=== PATIENT | female | born 1955 | race Caucasian/White ===

== ENCOUNTER 2017-12-11 10:47 | Observation (INO) ==
[2017-12-11 11:25] LABS: Bilirubin,Urine Small (Negative); Blood,Urine Negative (Negative); Clarity,Urine Cloudy (Clear); Color,Urine Dark Yellow (Yellow); Glucose,Urine (UA) Normal (Normal); Ketones,Urine 15 mg/dL (Negative); Leukocyte Esterase,Urine Negative (Negative); Nitrite,Urine Negative (Negative); PH,Urine 6.5 pH Units (5.0-8.0); Protein,Urine 30 mg/dL (Neg-Trace); Specific Gravity,Urine 1.029 (1.010-1.025)
[2017-12-11 11:27] LABS: Bacteria,Urine Few per hpf (None-Few); Squamous Epithelial Cell,Urine Many per lpf (None-Few); WBC,Urine 30-50 per hpf (0-3)
[2017-12-11 11:48] LABS: RBC,Urine 0-3 per hpf (0-3); Yeast,Urine Few per hpf (None Seen)
[2017-12-11] MEDS ORDERED: GI Cocktail 40 ML EACH PO ONE (12:03)
[2017-12-11] MEDS ORDERED: Promethazine 25 MG in 0.9 % Sodium Chloride 50 ML IVPB ONE (12:03)
[2017-12-11 12:16] LABS: Basophils % 0.4 %; Eosinophils # 0.1 K/mcL (0.0-0.6); Eosinophils % 0.4 %; Hematocrit 45.9 % (35.3-44.9); Hemoglobin 15.3 g/dL (11.5-15.4); Immature Granulocytes % 0.4 % (0-4); Immature Platelets 2.3 % (1.1-6.1); Lymphocytes # 1.8 K/mcL (0.6-4.6); Lymphocytes % 15.6 %; Mean Corpuscular HGB Conc 33.3 g/dL (31.6-35.5); Mean Corpuscular Hemoglobin 31.3 pg (28.0-33.3); Mean Corpuscular Volume 93.9 fL (83.0-100.0); Monocytes # 0.6 K/mcL (0.0-1.3); Monocytes % 5.7 %; Neutrophils # 8.7 K/mcL (1.6-8.9); Platelet Count 337 K/mcL (140-400); Red Blood Count 4.89 M/mcL (3.82-4.97); Red Cell Distribution Width 12.7 % (11.5-14.5); Segmented Neutrophils % 77.5 %
--- NOTE | 2017-12-11 12:30 | Emergency Department Note ---
Disposition Clinical Impression: Hypoxia Nausea & vomiting Qualifiers: Vomiting type: unspecified Vomiting Intractability: unspecified Qualified Code( s): R11.2 - Nausea with vomiting, unspecified COPD (chronic obstructive pulmonary disease) Qualifiers: COPD type: unspecified COPD Qualified Code(s): J44.9 - Chronic obstructive pulmonary disease, unspecified Disposition: Admitted As Inpatient Condition: Fair Chest Pain HPI - General Chief Complaint: ED Chest Pain Stated Complaint: Sharp pain under breast, into back Time Seen by Provider: 12/11/17 11:44 Source: patient Mode of arrival: ambulatory Limitations: no limitations Vital Signs Reviewed: Yes Nursing Notes Reviewed: Yes - History of Present Illness HPI Narrative: 62-year-old female presents to the emergency department for n/v x48 hours. After multiple episodes of vomiting the patient developed pain to the L lat inf chest. Chest hurts with movement and palpation, sharp, stabbing, lasting seconds at a time. No fever, chills, diarrhea, SOB, palpitations, headache. No history of CAD. abdomen is mildly tender to epigastrum. Patient states no diarrhea or hematochezia or melena. Severity scale (1-10): 6 - Related Data Home Medications Medication Instructions Recorded Confirmed LORazepam [Ativan] 0.5 mg PO DAILY PRN 12/11/17 12/11/17 PARoxetine HCl [Paroxetine HCl] 40 mg PO DAILY 12/11/17 12/11/17 hydroCHLOROthiazide 25 mg PO DAILY 12/11/17 12/11/17 [Hydrochlorothiazide] Allergies Allergy/AdvReac Type Severity Reaction Status Date / Time codeine Allergy Anaphylaxis Verified 12/11/17 11:11 [place] Allergy Anaphylaxis Verified 12/11/17 11:11 All systems ED: reviewed and negative except as stated. 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 nondistended. Bowel sounds present Neuro: A&O to person, place, time and situation. No focal deficits noted on exam Psychiatric: cooperative and appropriate mood and affect. - General Limitations: no limitations General appearance: alert Course Vital Signs Temperature 97.9 F 12/11/17 11:12 Pulse Rate 72 12/11/17 11:12 Respiratory Rate 24 12/11/17 11:12 Blood Pressure 159/84 12/11/17 11:12 O2 Sat by Pulse Oximetry 93 12/11/17 11:12 Temperature 98.7 F 12/12/17 10:59 Pulse Rate 63 12/12/17 10:59 Respiratory Rate 18 12/12/17 10:59 Blood Pressure 119/77 12/12/17 10:59 O2 Sat by Pulse Oximetry 95 12/12/17 10:59 Oxygen Delivery Oxygen Delivery Nasal Cannula Chest Pain - MDM Narrative Medical decision making narrative: Laboratory evaluation largely within normal limits. Urinalysis is questionable for urinary tract infection however there is no bacteria seen there is no nitrate present. We will send urine down for urine culture. CT of the abdomen and pelvis is negative for acute surgical pathology however there is mild swelling around the distal stomach. Patient tolerated a small amount of fluid in the emergency department after Zofran at home and Phenergan in the emergency Department however she is still nauseated. During observation in the emergency Department she became hypoxic down to 87% with a good waveform, daughter states this occurred once in the past with COPD exacerbation and pneumonia. Patient has mild wheezing in the bilateral posterior lung hilario however she does not appear to be in respiratory distress. Patient given Solu-Medrol and albuterol inhaler in the emergency department. She will be admitted to the hospitalist for further care and evaluation of her nausea and vomiting and hypoxia. Patient pain to the left lower chest is likely secondary to musculoskeletal etiology such as a rib strain as it is worse with palpation and movement. D- dimer negative. - Medical Records Medical records reviewed: Yes I reviewed the patient's medical records. - Lab Data Lab results reviewed: Yes I reviewed the patient's lab results. Result diagrams: 12/11/17 12:13 12/11/17 12:13 Lab Results 12/11/17 12/11/17 12/11/17 Range/Units 10:53 12:13 12:13 WBC 11.2 H (4.3-11.1) K/mcL RBC 4.89 (3.82-4.97) M/mcL Hgb 15.3 (11.5-15.4) g/dL Hct 45.9 H (35.3-44.9) % MCV 93.9 (83.0-100.0) fL MCH 31.3 (28.0-33.3) pg MCHC 33.3 (31.6-35.5) g/dL RDW 12.7 (11.5-14.5) % Plt Count 337 (140-400) K/mcL MPV 10.0 (9.4-12.4) fL Immature Gran % 0.4 (0-4) % Seg Neutrophils % 77.5 % Lymphocytes % 15.6 % Monocytes % 5.7 % Eosinophils % 0.4 % Basophils % 0.4 % Neutrophils # 8.7 (1.6-8.9) K/mcL Lymphocytes # 1.8 (0.6-4.6) K/mcL Monocytes # 0.6 (0.0-1.3) K/mcL Eosinophils # 0.1 (0.0-0.6) K/mcL Basophils # 0.0 (0.0-0.2) K/mcL Immature Plt Fraction 2.3 (1.1-6.1) % D-Dimer (0-500) ng/mLFEU Sodium 139 (136-145) mEq/L Potassium 3.6 (3.5-5.1) mEq/L Chloride 102 (98-107) mEq/L Carbon Dioxide 30 H (23-29) mEq/L BUN 13 (8-23) mg/dL Creatinine 0.55 L (0.60-1.20) mg/dL Est GFR ( Amer) > 60 (> 60) Est GFR (Non-Af Amer) > 60 (> 60) BUN/Creatinine Ratio 24 (6-26) Glucose 121 H (70-105) mg/dL Calculated Osmolality 289 (280-300) Calcium 9.4 (8.6-10.3) mg/dL Total Bilirubin 0.6 (0.3-1.0) mg/dL Direct Bilirubin 0.2 (0.0-0.2) mg/dL Indirect Bilirubin 0.4 (0.0-1.2) mg/dL AST 14 (13-39) Units/L ALT 16 (7-52) Units/L Alkaline Phosphatase 92 (34-104) Units/L Troponin I < 0.03 (< 0.04) ng/mL Serum Total Protein 7.0 (6.4-8.9) g/dL Albumin 4.5 (3.5-5.7) g/dL Globulin 2.5 (2.4-3.5) g/dL Albumin/Globulin Ratio 1.8 (1.1-2.2) Lipase 13 (11-82) Units/L Urine Color Dark Yellow (Yellow) Urine Clarity Cloudy A (Clear) Urine pH 6.5 (5.0-8.0) pH Units Ur Specific [place] 1.029 H (1.010-1.025) Urine Protein 30 H (Neg-Trace) mg/dL Urine Glucose (UA) Normal (Normal) mg/dL Urine Ketones 15 H (Negative) mg/dL Urine Blood Negative (Negative) Urine Nitrite Negative (Negative) Urine Bilirubin Small H (Negative) Urine Urobilinogen 2.0 H (Normal) mg/dL Ur Leukocyte Esterase Negative (Negative) Urine Microscopic RBC 0-3 (0-3) per hpf Urine Microscopic WBC 30-50 H (0-3) per hpf Ur Squamous Epith Cells Many H (None-Few) per lpf Urine Bacteria Few (None-Few) per hpf Urine Yeast Few H (None Seen) per hpf Ur Culture Indicated? NO (NO) 12/11/17 Range/Units 15:55 WBC (4.3-11.1) K/mcL RBC (3.82-4.97) M/mcL Hgb (11.5-15.4) g/dL Hct (35.3-44.9) % MCV (83.0-100.0) fL MCH (28.0-33.3) pg MCHC (31.6-35.5) g/dL RDW (11.5-14.5) % Plt Count (140-400) K/mcL MPV (9.4-12.4) fL Immature Gran % (0-4) % Seg Neutrophils % % Lymphocytes % % Monocytes % % Eosinophils % % Basophils % % Neutrophils # (1.6-8.9) K/mcL Lymphocytes # (0.6-4.6) K/mcL Monocytes # (0.0-1.3) K/mcL Eosinophils # (0.0-0.6) K/mcL Basophils # (0.0-0.2) K/mcL Immature Plt Fraction (1.1-6.1) % D-Dimer 402 (0-500) ng/mLFEU Sodium (136-145) mEq/L Potassium (3.5-5.1) mEq/L Chloride (98-107) mEq/L Carbon Dioxide (23-29) mEq/L BUN (8-23) mg/dL Creatinine (0.60-1.20) mg/dL Est GFR ( Amer) (> 60) Est GFR (Non-Af Amer) (> 60) BUN/Creatinine Ratio (6-26) Glucose (70-105) mg/dL Calculated Osmolality (280-300) Calcium (8.6-10.3) mg/dL Total Bilirubin (0.3-1.0) mg/dL Direct Bilirubin (0.0-0.2) mg/dL Indirect Bilirubin (0.0-1.2) mg/dL AST (13-39) Units/L ALT (7-52) Units/L Alkaline Phosphatase (34-104) Units/L Troponin I (< 0.04) ng/mL Serum Total Protein (6.4-8.9) g/dL Albumin (3.5-5.7) g/dL Globulin (2.4-3.5) g/dL Albumin/Globulin Ratio (1.1-2.2) Lipase (11-82) Units/L Urine Color (Yellow) Urine Clarity (Clear) Urine pH (5.0-8.0) pH Units Ur Specific [place] (1.010-1.025) Urine Protein (Neg-Trace) mg/dL Urine Glucose (UA) (Normal) mg/dL Urine Ketones (Negative) mg/dL Urine Blood (Negative) Urine Nitrite (Negative) Urine Bilirubin (Negative) Urine Urobilinogen (Normal) mg/dL Ur Leukocyte Esterase (Negative) Urine Microscopic RBC (0-3) per hpf Urine Microscopic WBC (0-3) per hpf Ur Squamous Epith Cells (None-Few) per lpf Urine Bacteria (None-Few) per hpf Urine Yeast (None Seen) per hpf Ur Culture Indicated? (NO) - Radiology Data Radiology results reviewed: Yes I reviewed the patient's radiology results. - EKG Data EKG attestation: Yes I reviewed and interpreted this EKG. EKG results narrative: Normal sinus rhythm with a rate of 74 without evidence of STEMI. KS 145, QRS 86 , QTC 395. Heart Score - Score History: Slightly Suspicious EKG: Normal Age: 45-65 Risk Factors: 1-2 risk factors Troponin: Less than normal limit HEART Score Total: 2
[2017-12-11 12:40] LABS: Troponin I < 0.03 ng/mL (< 0.04)
[2017-12-11 12:41] LABS: Alanine Aminotransferase 16 Units/L (7-52); Albumin 4.5 g/dL (3.5-5.7); Albumin/Globulin Ratio 1.8 (1.1-2.2); Alkaline Phosphatase 92 Units/L (34-104); Aspartate Amino Transferase 14 Units/L (13-39); BUN/Creatinine Ratio 24 (6-26); Bilirubin,Direct 0.2 mg/dL (0.0-0.2); Bilirubin,Indirect 0.4 mg/dL (0.0-1.2); Bilirubin,Total 0.6 mg/dL (0.3-1.0); Blood Urea Nitrogen 13 mg/dL (8-23); Calcium 9.4 mg/dL (8.6-10.3); Carbon Dioxide 30 mEq/L (23-29); Chloride 102 mEq/L (98-107); Globulin 2.5 g/dL (2.4-3.5); Glucose 121 mg/dL (70-105); Lipase 13 Units/L (11-82); Osmolality,Calculated 289 (280-300); Potassium 3.6 mEq/L (3.5-5.1); Sodium 139 mEq/L (136-145); eGFR For African Americans > 60 (> 60); eGFR For Non-African Americans > 60 (> 60)
[2017-12-11] MEDS ORDERED: *HR* OxyCODONE/APAP 5/325 TABLET PO ONE ×2 (12:44→13:30)
[2017-12-11] MEDS ORDERED: Isovue-370 500 ML INFUS..BTL IV ONE (13:53)
[2017-12-11] MEDS ORDERED: Albuterol 2.5 MG/3 ML NEBULIZER IH ONE (15:12)
[2017-12-11] MEDS ORDERED: methylPREDNISolone 125 MG/2 ML VIAL IVP ONE (15:12)
--- NOTE | 2017-12-11 19:08 | Internal Med History&Physical ---
Date of Encounter: 12/11/17 Time of Encounter: 19:08 Internal Medicine - H&P: HPI Admitted From: Home Plans for Post Hospital Care: Home History of present illness: Ms. Perry is a 62 year old female patient with history of depression, hypertension, COPD, chronic a smoker for 35 years and quit in 2017, hyperlipidemia, strong family history of cardiac disease in her dad at age 60s, grandparents 70s and mother 90s with no home oxygen brought to emergency room by family with concern of ongoing nausea vomiting that started Sunday morning that led to left upper quadrant and epigastric abdominal pain and left lower chest pain or shortness of breath. In ER patient was found to be hypoxic 87% on 2 L oxygen via nasal cannula started. Initial lab in ER with no acute finding. D-dimer negative. Chest x-ray bilateral atelectasis. CT abdomen with finding of gastritis otherwise no acute. In ER GI cocktail, lidocaine patch, Phenergan, breathing treatments and Solu-Medrol was restarted for symptomatic relief considering COPD exacerbation as well. Your physician called on-call hospitalist for the admission and workup diagnosis of persistent nausea vomiting, hypoxia, COPD exacerbation. During my interview family at bedside and patient feeling better is still 2 L oxygen by nasal cannula and persistent nausea that want to drink fluid. Patient was not able to keep down anything therefore got dehydrated and decreased urine output. Patient never had any cardiac evaluation. Patient denies any recent travel, trauma, fall. Patient denies fever, chills, headache, dizziness, diarrhea, constipation, change in urine frequency, urgency, small bowel but decreased urine output. Past Med Surg Social Fam HX - Past Medical History Medical history: arthritis, asthma, cancer, COPD, DVT, dementia, hyperlipidemia , hypertension, malignancy, osteoporosis Psychiatric history: anxiety, depression - Past Surgical History Surgical History: cancer surgery, hysterectomy, orthopedic, other, other - Social History Smoking Status: Former smoker Smokeless Tobacco Status: No Alcohol use: none Drug use: none Internal Medicine - H&P: Meds LORazepam [Ativan] 0.5 mg PO DAILY PRN 12/11/17 [History] PARoxetine HCl [Paroxetine HCl] 40 mg PO DAILY 12/11/17 [History] hydroCHLOROthiazide [Hydrochlorothiazide] 25 mg PO DAILY 12/11/17 [History] 3 Allergy/AdvReac Type Severity Reaction Status Date / Time codeine Allergy Anaphylaxis Verified 12/11/17 11:11 [place] Allergy Anaphylaxis Verified 12/11/17 11:11 All Systems PM: A 10-system review of systems was performed and is negative for pertinent findings except as documented above in the HPI. - Constitutional Vitals: Temp Pulse Resp BP Pulse Ox 97.4 F L 63 17 120/61 94 12/11/17 18:16 12/11/17 18:16 12/11/17 18:16 12/11/17 18:16 12/11/17 18:16 Exam: General appearance: No acute distress, A&O X 3. Obese. 2 L oxygen by nasal cannula. Family at bedside Head exam: Atraumatic Eye exam: EOMI, PERRLA ENT exam: Dry oral mucosa Neck nontender, supple Respiratory exam: Decreased breath sounds bilaterally Cardiovascular exam: Regular rate and rhythm, no systolic murmur Abdominal exam: Soft, mildly tender epigastric area. nondistended, positive bowel sounds Extremities exam: No calf tenderness, no pedal edema Present: Skin-no rash, warm, dry, intact Neurological exam: Alert, awake, oriented 3, CN II-XII intact, no focal deficits. No facial droop. Normal speech. Normal gait. Romberg sign negative Internal Med - H&P Results - Labs CBC & Chem 7: 12/11/17 12:13 12/11/17 12:13 - Assessment and plan (1) Gastritis Current Visit: Yes Status: Acute Assessment and plan: New onset. Associated with nausea vomiting and dry heaves. CT abdomen with suggestive finding. Never had endoscopy done. Symptomatic treatment with antiemetic, IV fluid, PPI. No active bleeding. Patient may need to get evaluated by gastroenterologists on OPD basis and get better symptomatically. Patient also have mild to moderate dehydration due to persistent nausea vomiting. Qualifiers: Gastritis type: unspecified gastritis Chronicity: acute Gastritis bleeding: without bleeding Qualified Code(s): K29.00 - Acute gastritis without bleeding (2) Hypoxia Current Visit: Yes Status: Acute Assessment and plan: Multiple differential. Patient may have chronic hypoxia but never got diagnosed. D-dimer negative therefore less likely pulmonary embolism. Could be possibility of COPD exacerbation for will order ABG. Patient also has a basilar atelectasis that could be chronic. The underlying cardiac etiology therefore cardiac workup is planned. Oxygen supplementation, DuoNeb, spirometry. Patient may need home oxygen evaluation before discharge (3) COPD exacerbation Current Visit: Yes Status: Acute Assessment and plan: History of COPD. Decreased breath sound on my evaluation but mild wheezy in ER. ABG ordered. Continue IV steroid, DuoNeb, oxygen when necessary, spirometry. No antibiotics at this time. (4) Chest pain Current Visit: Yes Status: Acute Assessment and plan: Atypical left lower chest pain that could be due to repeated nausea vomiting but patient also had multiple cardiac risk factors such as chronic smoker, hyperlipidemia, hypertension and a strong family history of cardiac disease in her parents and grandparents and never had cardiac evaluation. Will put patient on telemetry, serial cardiac enzyme. We will also start low-dose aspirin, oxygen when necessary. Will hold beta emily due to concern of COPD exacerbation. Fasting lipid profile will be ordered and consider low-dose statin. Echocardiogram and also consult him tech if needed. Patient may need a stress test as well Qualifiers: Chest pain type: unspecified Qualified Code(s): R07.9 - Chest pain, unspecified (5) Abdominal pain Current Visit: Yes Status: Acute Assessment and plan: Most likely due to gastritis associated with persistent nausea vomiting. Will order lipase and amylase. CT abdomen with no acute finding except gastritis. IV fluid, clear liquid with close monitoring. Patient also has slight abnormal urine analysis but does not have urine symptom except decreased urine output that is most likely due to dehydration secondary to decreased by mouth intake and therefore I will monitor the patient if any concern of urine infection and then will order urine culture sensitivity and antibiotic. Qualifiers: Abdominal location: epigastric Qualified Code(s): R10.13 - Epigastric pain (6) Leukocytosis Current Visit: Yes Status: Acute Assessment and plan: Mild. Patient denies any systemic signs and symptoms. Most likely a stress related. Continue to monitor. Urine analysis abnormal but not convince UTI therefore will monitor the patient before considering urine culture sensitivity and antibiotic. Chest x-ray with no acute finding. Monitor CBC Qualifiers: Leukocytosis type: unspecified Qualified Code(s): D72.829 - Elevated white blood cell count, unspecified (7) DVT prophylaxis Current Visit: Yes Status: Acute Assessment and plan: SCDs - Time Spent With Patient Total time spent is greater than 50% in coordination of care (as documented) at patient's floor/unit and/or counseling patient: Greater than 35 minutes (Multiple medical complaint evaluation. Counseling of family members. Discussed the plan with nurse.)
[2017-12-11] MEDS: *HR* Promethazine 25 MG/ML VIAL IVP PRN (21:40)
[2017-12-11] MEDS: 0.9 % Sodium Chloride 1,000 ML IVC SCH (23:40)
[2017-12-12] MEDS ORDERED: GI Cocktail 40 ML EACH PO ONE (04:22)
[2017-12-12] MEDS: *HR* Promethazine 25 MG/ML VIAL IVP PRN ×2 (04:24→15:11)
[2017-12-12] MEDS ORDERED: *HR* LORazepam 0.5 MG TABLET PO PRN (11:52)
[2017-12-12] MEDS ORDERED: Ipratropium/Albuterol Neb 3 ML IH PRN (11:52)
[2017-12-12] MEDS ORDERED: Ondansetron 4 MG/2 ML VIAL IVP PRN (12:08)
[2017-12-12] MEDS ORDERED: *HR* OxyCODONE/APAP 5/325 TABLET PO PRN (12:08)
[2017-12-12] MEDS: 0.9 % Sodium Chloride 1,000 ML IVC SCH (13:29)
--- NOTE | 2017-12-12 14:07 | Internal Med Progress Note ---
Date of Encounter: 12/12/17 Time of Encounter: 12:30 - Assessment and plan (1) Abdominal pain Current Visit: Yes Status: Acute Assessment and plan: Most likely due to gastritis associated with persistent nausea vomiting CT of abd showed gastritis GI consulted for EGD in AM Qualifiers: Abdominal location: epigastric Qualified Code(s): R10.13 - Epigastric pain (2) Gastritis Current Visit: Yes Status: Acute Assessment and plan: Recurrent gastritis cont full liquid diet for now cont PPI also consulted GI for further work up since she does have recurrent gastritis cont IVF Qualifiers: Gastritis type: unspecified gastritis Chronicity: acute Gastritis bleeding: without bleeding Qualified Code(s): K29.00 - Acute gastritis without bleeding (3) COPD exacerbation Current Visit: Yes Status: Acute Assessment and plan: She does have mild COPD exacerbation with hypoxia started on Steroid Neb cont Duoneb PRN try to wean her off the O2 (4) Hypoxia Current Visit: Yes Status: Acute Assessment and plan: Due to mild COPD exacerbation will try to wean her off the O2 as she tolerates may need over night pulse oxy study (5) Chest pain Current Visit: Yes Status: Acute Assessment and plan: Atypical left lower chest pain mostly musculoskeletal So far negative trop Normal EKG very less likely cardiac related pain Qualifiers: Chest pain type: unspecified Qualified Code(s): R07.9 - Chest pain, unspecified (6) DVT prophylaxis Current Visit: Yes Status: Acute Assessment and plan: SCDs - Time Spent With Patient Total time spent is greater than 50% in coordination of care (as documented) at patient's floor/unit and/or counseling patient: - Subjective Interval history: Ms. Perry is a 62 year old female with known PMH of HTN, Depression, COPD former smoker quit in 06/2017, HLD pt presented to ER with epigastric pain and intractable nausea / vomiting. He did c/o left lower chest wall pain radiating to her back. Pt stated she does have recurrent epigastric pain, dysphagia, nausea and vomiting almost every 2-3 weeks. Pt states she is feeling little better now. Denied any CP. Still has abdominal discomfort. - Constitutional Vitals: Temp Pulse Resp BP Pulse Ox 98.7 F 63 18 119/77 95 12/12/17 10:59 12/12/17 10:59 12/12/17 10:59 12/12/17 10:59 12/12/17 10:59 General appearance: Present: A&O X 3, no acute distress, answers questions appropriately - Head Head exam: Present: atraumatic, normal inspection - Neck Neck exam general surgery: Present: supple - Respiratory Respiratory exam: Present: decreased breath sounds. Absent: chest wall tenderness, rales, respiratory distress, rhonchi, wheezes - Cardiovascular Cardiovascular exam: Present: RRR, +S1, +S2. Absent: tachycardia - GI/Abdominal GI/Abdominal exam: Present: normal bowel sounds, soft, tenderness (mild discomfort in epigastric region). Absent: distended, rebound, rigid - Extremities Exam Extremities exam: Absent: calf tenderness, pedal edema, tenderness - Back Exam Back exam: Absent: CVA tenderness (L), CVA tenderness (R) - Neurological Exam Neurological exam: Present: alert, oriented X3 - Psychiatric Psychiatric exam: Present: normal affect, normal mood - Skin Skin exam: Absent: rash Internal Medicine: Result - Labs CBC & Chem 7: 12/11/17 12:13 12/11/17 12:13 - ABG Interpretation ABG results: PT/INR, D-dimer D-Dimer 402 ng/mLFEU (0-500) 12/11/17 15:55 Consult Discharge Plan - Plan Referrals: Rosa Molina CNP [Primary Care Provider] -
[2017-12-12] MEDS: Budesonide Neb 0.5 MG/2 ML IH SCH ×2 (17:29→22:05)
[2017-12-13] MEDS: 0.9 % Sodium Chloride 1,000 ML IVC SCH ×2 (02:19→21:36)
[2017-12-13] MEDS ORDERED: hydroCHLOROthiazide 25 MG TABLET PO SCH (09:00)
[2017-12-13 09:12] LABS: INR 1.1; Prothrombin Time 12.3 Seconds (9.4-12.1)
--- NOTE | 2017-12-13 10:08 | Gastroenterology Consult Note ---
<Analy Leon M - Last Filed: 12/17/17 13:29> Date of Encounter: 12/17/17 Time of Encounter: 09:20 - Assessment and plan (1) Abdominal pain Status: Acute Assessment and plan: Likely gastritis, she needs EGD. Continue PPI. Will proceed with EGD today. Qualifiers: Abdominal location: epigastric Qualified Code(s): R10.13 - Epigastric pain (2) Nausea & vomiting Status: Acute Qualifiers: Vomiting type: cyclical vomiting Vomiting Intractability: unspecified Qualified Code(s): G43.A0 - Cyclical vomiting, not intractable - Time Spent With Patient Total time spent is greater than 50% in coordination of care (as documented) at patient's floor/unit and/or counseling patient: GI History of Present Illness - Data of Consult Patient: new to practice Consult date: 12/13/17 Requesting Physician: Ella Albrecht MD - Consult Narrative Reason for consult: epigastric pain/nausea/vomiting History of present illness: Ms. Perry is a 62 year old female with history of depression, hypertension, COPD , chronic a smoker for 35 years and quit in 2017, hyperlipidemia, strong family history of cardiac disease. She presented with ongoing nausea vomiting that started Sunday morning that led to left upper quadrant and epigastric abdominal pain and left lower chest pain or shortness of breath. She states has been on and off for the past year but much worse since Sunday. She complains of acid reflux that wakes her up at night. She states nausea and vomiting is worse after eating. She has occasional diarrhea. She denies bloody or tarry stools. She rarely uses NSAIDs. She denies fever or chills. EGD: denies Colon: 3 years ago at [facility] NSAIDS: occ anticoagulants: none Past Med Surg Social Fam HX - Past Medical History Medical history: arthritis, asthma, cancer, COPD, DVT, dementia, hyperlipidemia , hypertension, malignancy, osteoporosis Psychiatric history: anxiety, depression - Past Surgical History Surgical History: cancer surgery, hysterectomy, orthopedic, other, other - Social History Smoking Status: Former smoker Smokeless Tobacco Status: No Alcohol use: none Drug use: none Review of Systems: GI: as per [facility]: denies fever, has some chills EYES: denies yellow discoloration ENT: denies pain with swallowing, has some difficulty swallowing CARDIO: see HPI RESP: Shortness of breath with exertion : denies change in color of urine NEURO: denies any weakness HEME: Denies any bruising MS: denies joint pain, joint swelling or back pain. DERM: denies rash or itching PSYCH: Denies history of anxiety or depression - Constitutional Vitals: Temp Pulse Resp BP Pulse Ox 98.2 F 82 16 130/73 96 12/13/17 07:32 12/13/17 07:32 12/13/17 07:32 12/13/17 07:32 12/13/17 08:05 Exam: CONSTITUTIONAL:~alert, no acute distress.~HEAD:~normocephalic.~EYES:~no jaundice.~NECK:~no obvious swelling.~HEART:~regular rate and rhythm, no murmurs. ~LUNGS:~bilateral fair air entry.~ABDOMEN:~non distended, soft, very tender, no masses palpable, no organomegaly, small linear scar below umbilicus.~RECTAL EXAM :~Deferred.~EXTREMITIES:~no clubbing, cyanosis or edema, obese.~SKIN:~no stigmata of chronic liver disease.~NEUROLOGIC:~no obvious focal defect.~~~~ Results - Labs CBC & Chem 7: 12/11/17 12:13 12/11/17 12:13 Labs: Last Result Calcium 9.4 mg/dL (8.6-10.3) 12/11/17 12:13 Troponin I < 0.03 ng/mL (< 0.04) 12/11/17 12:13 Entire Visit Hgb 15.3 g/dL (11.5-15.4) 12/11/17 12:13 Hct 45.9 % (35.3-44.9) H 12/11/17 12:13 PT 12.3 Seconds (9.4-12.1) H 12/13/17 08:43 Total Bilirubin 0.6 mg/dL (0.3-1.0) 12/11/17 12:13 AST 14 Units/L (13-39) 12/11/17 12:13 ALT 16 Units/L (7-52) 12/11/17 12:13 Lipase 13 Units/L (11-82) 12/11/17 12:13 - ABG ABG results: PT/INR, D-dimer PT 12.3 Seconds (9.4-12.1) H 12/13/17 08:43 D-Dimer 402 ng/mLFEU (0-500) 12/11/17 15:55 Consult Discharge Plan - Plan Instructions: Diet for Ulcers and Gastritis (GEN) Referrals: Rosa Molina CNP [Primary Care Provider] - 12/21/17 1:00 pm Venkata Perkins MD [Partnered Physician] - (WEB REQUEST ENTERED. OFFICE WILL WITH APPOINTMENT.) Prescriptions: Albuterol Sulfate [Albuterol Inhaler] 2 puff IH Q6HR PRN #1 hfa.aer.ad PRN Reason: Shortness Of Breath OxyCODONE/APAP 5/325 [Percocet 5/325 MG] 1 each PO Q6HR PRN 4 Days #10 tablet PRN Reason: Moderate Pain Budesonide [Pulmicort Flexhaler 90mcg] 2 puff IH BID #1 aer.pow.ba Omeprazole [PriLOSEC] 20 mg PO BID #60 capsule. Sucralfate [Carafate] 1 gm PO QIDAC #120 tablet <Venkata Perkins - Last Filed: 12/19/17 05:58> Date of Encounter: 12/17/17 - Time Spent With Patient Total time spent is greater than 50% in coordination of care (as documented) at patient's floor/unit and/or counseling patient: GI History of Present Illness - Data of Consult Requesting Physician: Ella Albrecht MD - Consult Narrative History of present illness: Ms. Perry is a 62 year old female - Constitutional Vitals: Temp Pulse Resp BP Pulse Ox 97.3 F L 58 16 163/83 94 12/14/17 10:23 12/14/17 10:23 12/14/17 10:23 12/14/17 10:23 12/14/17 15:01 Results - Labs CBC & Chem 7: 12/11/17 12:13 12/11/17 12:13 Labs: Last Result Calcium 9.4 mg/dL (8.6-10.3) 12/11/17 12:13 Troponin I < 0.03 ng/mL (< 0.04) 12/11/17 12:13 Entire Visit Hgb 15.3 g/dL (11.5-15.4) 12/11/17 12:13 Hct 45.9 % (35.3-44.9) H 12/11/17 12:13 PT 12.3 Seconds (9.4-12.1) H 12/13/17 08:43 Total Bilirubin 0.6 mg/dL (0.3-1.0) 12/11/17 12:13 AST 14 Units/L (13-39) 12/11/17 12:13 ALT 16 Units/L (7-52) 12/11/17 12:13 Lipase 13 Units/L (11-82) 12/11/17 12:13 - ABG ABG results: PT/INR, D-dimer PT 12.3 Seconds (9.4-12.1) H 12/13/17 08:43 D-Dimer 402 ng/mLFEU (0-500) 12/11/17 15:55 - Attending Attestation PLan EGD today. Patient with history of bladder, colon cancer in past. Need family tree filled out by patient. I have personally performed a face to face evaluation on this patient. I have reviewed and agree with the care plan. History and Exam by me shows:
[2017-12-13] MEDS: Budesonide Neb 0.5 MG/2 ML IH SCH ×2 (10:53→21:53)
--- NOTE | 2017-12-13 12:41 | Anesthesia Evaluation PreOp ---
Date of Encounter: 12/13/17 Time of Encounter: 12:40 - Past History Planned Operation: EGD Cardiac History: HTN, Hyperlipidemia Pulmonary History: Former smoker, COPD PICTURE FRAMES INSPECTOR History: Denies Any Significant HX Other Medical History: Other (Obese) Anesthesia History: No Prior Anesthetic Complications : No Alcohol Use: none Drug use: none Medications and Allergies LORazepam [Ativan] 0.5 mg PO DAILY PRN 12/11/17 [History] PARoxetine HCl [Paroxetine HCl] 40 mg PO DAILY 12/11/17 [History] hydroCHLOROthiazide [Hydrochlorothiazide] 25 mg PO DAILY 12/11/17 [History] 3 Allergy/AdvReac Type Severity Reaction Status Date / Time codeine Allergy Anaphylaxis Verified 12/11/17 11:11 [place] Allergy Anaphylaxis Verified 12/11/17 11:11 - Meds/Allergy Pre-op Review Medications Reviewed: Yes Allergies Reviewed: Yes Beta Blockers on Current Med List: No Anesthesia Results - Labs 12/11/17 12:13 12/11/17 12:13 - Imaging EKG: report reviewed (SB) Anesthesia Exam Vital Signs/O2 Sat/Glucose, Most Current Temp Pulse Resp BP Pulse Ox 12/13/17 12:36 98.8 F 64 18 147/69 93 12/13/17 11:00 97.8 F 54 16 128/74 98 12/13/17 10:54 16 96 Height: 5'7 Weight: 243 lbs NPO (# of Hours): MN Pain Scale: 0 - HEENT Pupil (Motor): Pupils equal, EOMI Mallampati: III Teeth: Edentulous (no upper dentition) Oral Opening: Less than or equal to 3 - PICTURE FRAMES INSPECTOR LOC: Oriented PICTURE FRAMES INSPECTOR Motor: Normal RUE, Normal LUE, Normal RLE, Normal LLE, Normal Face PICTURE FRAMES INSPECTOR Sensory: Normal: RUE, LUE, RLE, LLE, Face - Cardiac Rhythm: Regular Murmur: None JVD: No Carotid Bruit: No - Pulmonary Breath Sounds: bilateral Clear Respiratory Effort: Symmetrical Anesthesia Assess/Plan ASA Score: 3 (HTN COPD Obese) Modified [place] Scale for Level of Consciousness: Cooperative, oriented, and tranquil Anesthetic Plan: MAC Monitoring Plan: Standard Monitors Recovery Plan: Other (Discussed MAC, agrees to proceed)
[2017-12-13] MEDS ORDERED: *HR* Propofol 200 MG/20 ML VIAL IVP ONE (12:53)
[2017-12-13] MEDS ORDERED: Lidocaine -MPF 2% 2 ML VIAL ONE (12:54)
[2017-12-13] MEDS ORDERED: Tetracaine/Benzocaine/Butamben 200MG/SPRAY (100SPY/BOT) MM ONE (12:59)
[2017-12-13] MEDS ORDERED: 0.9 % Sodium Chloride 500 ML IVC SCH (13:00)
--- NOTE | 2017-12-13 14:46 | Internal Med Progress Note ---
Date of Encounter: 12/13/17 Time of Encounter: 14:42 - Assessment and plan (1) Abdominal pain Current Visit: Yes Status: Acute Assessment and plan: Most likely due to gastritis and non bleeding esophageal and gastric ulcers CT of abd showed gastritis s/p EGD - showed hiatal hernia, gastric and esophageal ulcer path report - P cont PPI + Carafate Qualifiers: Abdominal location: epigastric Qualified Code(s): R10.13 - Epigastric pain (2) Gastritis Current Visit: Yes Status: Acute Assessment and plan: Recurrent gastritis cont full liquid diet for now cont PPI Also started on Carafate she had EGD done today which showed Esophageal stenosis, non bleeding esophageal ulcers, 5cm hiatal hernia, non bleeding gastric ulcers cont IVF Qualifiers: Gastritis type: unspecified gastritis Chronicity: acute Gastritis bleeding: without bleeding Qualified Code(s): K29.00 - Acute gastritis without bleeding (3) Hypoxia Current Visit: Yes Status: Acute Assessment and plan: Due to mild COPD exacerbation will try to wean her off the O2 as she tolerates may need over night pulse oxy study (4) COPD exacerbation Current Visit: Yes Status: Acute Assessment and plan: She does have mild COPD exacerbation with hypoxia started on Steroid Neb cont Duoneb PRN try to wean her off the O2 (5) Chest pain Current Visit: Yes Status: Acute Assessment and plan: Atypical left lower chest pain mostly musculoskeletal So far negative trop Normal EKG very less likely cardiac related pain Qualifiers: Chest pain type: unspecified Qualified Code(s): R07.9 - Chest pain, unspecified (6) DVT prophylaxis Current Visit: Yes Status: Acute Assessment and plan: SCDs - Time Spent With Patient Total time spent is greater than 50% in coordination of care (as documented) at patient's floor/unit and/or counseling patient: - Subjective Interval history: Ms. Perry is a 62 year old female with known PMH of HTN, Depression, COPD former smoker quit in 06/2017, HLD pt presented to ER with epigastric pain and intractable nausea / vomiting. He did c/o left lower chest wall pain radiating to her back. Pt stated she does have recurrent epigastric pain, dysphagia, nausea and vomiting almost every 2-3 weeks. Pt stated she had a rough night, unable to sleep with abdominal discomfort. Denied any CP - Constitutional Vitals: Temp Pulse Resp BP Pulse Ox 98.8 F 64 18 147/69 93 12/13/17 12:36 12/13/17 12:36 12/13/17 12:36 12/13/17 12:36 12/13/17 12:36 General appearance: Present: A&O X 3, no acute distress, answers questions appropriately - Head Head exam: Present: atraumatic, normal inspection - Neck Neck exam general surgery: Present: supple - Respiratory Respiratory exam: Present: decreased breath sounds. Absent: rales, respiratory distress, rhonchi, wheezes - Cardiovascular Cardiovascular exam: Present: RRR, +S1, +S2. Absent: tachycardia - GI/Abdominal GI/Abdominal exam: Present: normal bowel sounds, soft, tenderness (epigastric), no peritoneal signs. Absent: distended, rebound, rigid - Extremities Exam Extremities exam: Absent: calf tenderness, pedal edema, tenderness - Back Exam Back exam: Absent: CVA tenderness (L), CVA tenderness (R) - Neurological Exam Neurological exam: Present: alert, oriented X3 - Psychiatric Psychiatric exam: Present: anxious Internal Medicine: Result - Labs CBC & Chem 7: 12/11/17 12:13 12/11/17 12:13 - ABG Interpretation ABG results: PT/INR, D-dimer PT 12.3 Seconds (9.4-12.1) H 12/13/17 08:43 D-Dimer 402 ng/mLFEU (0-500) 12/11/17 15:55 Consult Discharge Plan - Plan Referrals: Rosa Molina CNP [Primary Care Provider] -
[2017-12-14] MEDS: Budesonide Neb 0.5 MG/2 ML IH SCH (07:14)
--- NOTE | 2017-12-14 08:54 | Electrocardiograph Report ---
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
[2017-12-14] MEDS ORDERED: Isovue-370 500 ML INFUS..BTL IV ONE ×2 (09:04)
[2017-12-14 10:25] VITALS: BP 163/83
--- NOTE | 2017-12-14 14:32 | Discharge Summary ---
- NOTES TO OUTPATIENT PROVIDER Notes to Outpatient Provider: f/u with GI Dr. Pekrins for possible repeat EGD in 3 -4 weeks also to discuss about final pahtology reports from your recent EGD Orders not resulted at time of discharge: Pending orders 12/13/17 14:13 H. pylori Urease Culture [RM] Stat Surgical Pathology [PTH] Routine Date of Encounter: 12/14/17 Time of Encounter: 14:26 - Discharge Diagnosis (1) Abdominal pain Priority: Primary Status: Acute Qualifiers: Abdominal location: epigastric Qualified Code(s): R10.13 - Epigastric pain (2) Gastritis Priority: Primary Status: Acute Qualifiers: Gastritis type: unspecified gastritis Chronicity: acute Gastritis bleeding: without bleeding Qualified Code(s): K29.00 - Acute gastritis without bleeding (3) Hypoxia Priority: Secondary Status: Resolved (4) COPD exacerbation Priority: Secondary Status: Acute (5) Chest pain Priority: Secondary Status: Acute Qualifiers: Chest pain type: unspecified Qualified Code(s): R07.9 - Chest pain, unspecified (6) DVT prophylaxis Priority: Secondary Status: Acute Hospital course: Ms. Perry is a 62 year old female with known PMH of HTN, Depression, COPD former smoker quit in 06/2017, HLD pt presented to ER with epigastric pain and intractable nausea / vomiting. He did c/o left lower chest wall pain radiating to her back. Pt stated she does have recurrent epigastric pain, dysphagia, nausea and vomiting almost every 2-3 weeks. Pt was admitted in the hospital and consulted GI for further evaluation for her gastritis. Pt did go for EGD which showed 5 cm hiatal hernia, gastric and esophageal ulcer, also there was concerning for gastric mass. She had biopsies done her Esophageal biopsy negative for malignancy, Stomach biopsy final report still pending, however as per GI that one also looks negative for malignancy. She was started on PPI BID and Carafate. Pt symptoms little better today and tolerating full liquid diet well. Pt does have mild COPD exacerbation with hypoxia initially. She was placed on Duoneb and INH steroids. Her symptoms improved now, She is breathing comfortably on RA. Will do ambulating pulse oxy before she goes home. She did have CT of Chest, Abd and Plevis with oral and IV contrast today which showed improving gastritis, and b/l lower lobe atelectasis. - Time Spent with Patient Total time spent providing and/or coordinating discharge services: - Discharge Medications Prescriptions: Albuterol Sulfate [Albuterol Inhaler] 2 puff IH Q6HR PRN #1 hfa.aer.ad PRN Reason: Shortness Of Breath OxyCODONE/APAP 5/325 [Percocet 5/325 MG] 1 each PO Q6HR PRN 4 Days #10 tablet PRN Reason: Moderate Pain Budesonide [Pulmicort Flexhaler 90mcg] 2 puff IH BID #1 aer.pow.ba Omeprazole [PriLOSEC] 20 mg PO BID #60 capsule. Sucralfate [Carafate] 1 gm PO QIDAC #120 tablet Home Medications: LORazepam [Ativan] 0.5 mg PO DAILY PRN 12/11/17 [History] PARoxetine HCl [Paroxetine HCl] 40 mg PO DAILY 12/11/17 [History] hydroCHLOROthiazide [Hydrochlorothiazide] 25 mg PO DAILY 12/11/17 [History] Albuterol Sulfate [Albuterol Inhaler] 2 puff IH Q6HR PRN #1 hfa.aer.ad 12/14/17 [Rx] Budesonide [Pulmicort Flexhaler 90mcg] 2 puff IH BID #1 aer.pow.ba 12/14/17 [Rx] Omeprazole [PriLOSEC] 20 mg PO BID #60 capsule. 12/14/17 [Rx] OxyCODONE/APAP 5/325 [Percocet 5/325 MG] 1 each PO Q6HR PRN 4 Days #10 tablet [Rx] Sucralfate [Carafate] 1 gm PO QIDAC #120 tablet 12/14/17 [Rx] Allergies/Adverse Reactions: 3 Allergy/AdvReac Type Severity Reaction Status Date / Time codeine Allergy Anaphylaxis Verified 12/11/17 11:11 [place] Allergy Anaphylaxis Verified 12/11/17 11:11 Date of admission: 12/11/17 16:37 Primary care physician: Rosa Molina, Consults: 12/12/17 11:50 Consult to Gastroenterology [CONS] Routine Consulting Provider: Gastroenterology Cate Reason for Consult: Recurrent gastroenteritis Time Notified: 11:51 Call Completed: Yes - Constitutional Vitals: Temp Pulse Resp BP Pulse Ox 97.3 F L 58 16 163/83 95 12/14/17 10:23 12/14/17 10:23 12/14/17 10:23 12/14/17 10:23 12/14/17 10:23 General appearance: Present: A&O X 3, no acute distress, answers questions appropriately - Head Head exam: Present: atraumatic, normal inspection - Neck Neck exam general surgery: Present: supple - Respiratory Respiratory exam: Present: decreased breath sounds, wheezes (mild). Absent: respiratory distress, rhonchi - Cardiovascular Cardiovascular exam: Present: RRR, +S1, +S2. Absent: tachycardia - GI/Abdominal GI/Abdominal exam: Present: normal bowel sounds, soft. Absent: rebound, rigid, tenderness - Extremities Exam Extremities exam: Absent: calf tenderness, pedal edema, tenderness - Back Exam Back exam: Absent: CVA tenderness (L), CVA tenderness (R) - Patient Status Disposition: Home, Self-Care Condition: Good Overall status at discharge: patient is back to baseline - Discharge Instructions Instructions: Diet for Ulcers and Gastritis (GEN) Follow Up With: Rosa Molina CNP [Primary Care Provider] - Venkata Perkins MD [Partnered Physician] - - Diet and Activity Activity: increase activity as tolerated Diet: low salt diet, other (avoid fried food)
== END 2017-12-14 17:14 | disposition home or self-care (01) ==
LOC: 3ANU 10:47 → EMEROO 10:47 → 3ANU 17:57
PROVIDERS: ADMIT Family Medicine; ATTEND Family Medicine
PROC: ENDOEBX (2017-12-13 13:30)